=== PATIENT | female | born 1995 | race African-American/Black ===

== ENCOUNTER 2025-05-14 15:02 | Emergency (ER) | payer OTHER ==
[~2025-05-14] VITALS: Ht 157.5 cm; Wt 55.7 kg
--- NOTE | 2025-05-14 15:55 | ED.PDOC ---
HPI Comments 29 year old female with no past medical history presents to the emergency department with a chief complaint of laceration onset today (05/14/25) around 11:00, RT hand dominant. 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 Patient began experiencing pain and bleeding of 3rd digit, rates pain 8/10. Last Tetanus vaccine was in 2019. No other symptoms or modifying factors present at this time. Patient denies any fever, cough, difficulty swallowing, or shortness of breath Denies fever chills night sweats nausea vomiting diarrhea Denies chronic skin issues or family history of skin issues Chief Complaint: Laceration Time Seen by MD: 15:45 Reviewed Notes: Nurses Notes, Medications, Allergies Allergies: Coded Allergies: Penicillins (Verified Allergy, Unknown, 05/14/25) Home Meds Active Scripts Ibuprofen Micronized (Ibuprofen) 600 Mg Tab, 600 MG PO TIDWM for 10 Days, #30 TAB 0 Refills Prov:MAX FREIRE NP 05/14/25 Information Source: Patient Mode of Arrival: Ambulatory Severity: Moderate Severity of Laceration: Controlled Bleeding Complexity: Simple Timing: Hours Prehospital treatment: None Laceration Location: Digit #3 Mechanism: Work Related Last Tetanus: > 5 Years Skin Type: Linear Depth of Injury: Skin Tendon Injury: 0% Capillary Refill: < 3 seconds Tender: Moderate Past Medical History PAST MEDICAL HISTORY: Denies Surgical History: Denies all surgeries MOLDING SANDER History: No Pertinent MOLDING SANDER History Family History Family History: Reviewed,noncontributory to illness, No family hx of Cancer, No family hx of DM, No family hx of Heart minh, No family hx of HTN, No family hx ofKidney minh, No family hx of Liver minh, No family hx of Lung minh, No family hx of Stroke Social History Smoker: Non-Smoker Alcohol: Denies ETOH Use Drugs: Denies Drug Use Lives In: Home All Other Systems: Reviewed and Negative (as per HPI) Physical Exam General Appearance: Normal HEENT: Normal ENT Inspection, Pharynx Normal, TMs Normal Neck: Full Range of Motion, Non-Tender, Normal, Normal Inspection Respiratory: Chest Non-Tender, Lungs Clear, No Accessory Muscle Use, No Respiratory Distress, Normal Breath Sounds Cardiovascular: No Edema, No JVD, No Murmur, No Gallop, Normal Peripheral Pulses, Regular Rate/Rhythm Breast Exam: Deferred Gastrointestinal: No Organomegaly, Non Tender, No Pulsatile Mass, Normal Bowel Sounds, Soft Genitalia: Deferred Pelvic: Deferred Rectal: Deferred Extremities: No calf tenderness, Normal capillary refill, No pedal edema Musculoskeletal : Location: Left Extremity Location: Finger 3 (echymosis to dorsal/volar distal phalanx, full ROM, pain with flexion. neurovascular intact, cap refill < 3 seconds. 1 cm abrasion noted to roof of nailbed with no active bleeding) Apperance: Normal Neurologic: Alert, piping blocker II-XII nml as Tested, No Motor Deficits, Normal Affect, Normal Mood, No Sensory Deficits Cerebellar Function: Normal Reflexes: Normal Skin: Dry, Normal Color, Warm Lymphatic: No Adenopathy Was a procedure done? Was a procedure done?: No X-Ray, Labs, Meds, VS Vital Signs Date Time Temp Pulse Resp B/P (MAP) Pulse Ox O2 Delivery O2 Flow Rate FiO2 05/14/25 17:31 86 16 98 Room Air 05/14/25 17:31 98.6 86 18 132/75 (94) 98 98.6 05/14/25 15:15 98.4 83 16 132/78 (96) 98 98.4 Current Medications Medications (Trade) Dose Ordered Sig/Feliberto Route Start Time Stop Time Status Last Admin Diphtheria/ Tetanus/Acell Pertussis (Boostrix T-Dap) 0.5 ml ONCE ONCE IM 05/14/25 16:00 05/14/25 16:01 DC 05/14/25 16:00 Acetaminophen (Tylenol Tablet Or Capsule) 1,000 mg ONCE ONCE PO 05/14/25 16:00 05/14/25 16:01 DC 05/14/25 16:00 [place] [id number] Ph: [phone] DIAGNOSTIC IMAGING Diagnostic Imaging Report : [id number] Signed PATIENT: CHAZ PERALTA ACCT: [id number] UNIT: [id number] : 1995 LOC: ER ROOM / BED: / AGE / SEX: 29 / F ADM STATUS: REG ER SERVICE [id number] ORDERING PHYSICIAN: MAX FREIRE NP PROCEDURE(s): LHAN - L HAND 3V XRAY REASON: r/o fracture to long finger ORDER NUMBER(s): [id number], ACCESSION NUMBER(s): [id number] CLINICAL INDICATION: r/o fracture to long finger TECHNIQUE: XY L HAND 3V XRAY Comparison: None FINDINGS/IMPRESSION: : Minimally displaced fracture of the base of the distal 3rd phalanx. ATED BY: JIMBO ALEXANDRE MD DICTATED DATE/TIME: 05/14/251636 SIGNED BY: JIMBO ALEXANDRE MD SIGNED DATE/TIME: 05/14/251636 CC: X-Ray, Labs, Meds, VS Comment 29 year old female with no past medical history presents to the emergency [facility] with a chief complaint of laceration onset today (05/14/25) around 11:00, RT hand dominant. Patient arrives alert and oriented, ABC's intact, afebrile, vital signs stable, saturating well in room air Diagnostic imaging ordered by me and results interpreted by radiology : XY L hand 3 V: IMPRESSION: : Minimally displaced fracture of the base of the distal 3rd phalanx. Patient was given: Tylenol 1 g PO, Tetanus vaccine. Tolerated medications with no adverse reaction. Additional MDM Review of External, Non-ED records: External records reviewed. Discussion with independent historian (EMS, family) history obtained from the patient/parents (if applicable) at bedside Chronic conditions affecting care: None Social determinants of health affecting care: None Consideration of admission (observation or admission): I considered escalation of care to admission for this patient, however given the reassuring workup, the patient is safe for outpatient management. Time of 1ST Reevaluation: 16:15 Reevaluation 1ST: Improved Patient Education/Counseling: Diagnosis, Treatment Family Education/Counseling: No Family Present Departure 1 Departure Time of Disposition: 16:46 Impression: Primary Impression: Phalanx, distal fracture of finger Qualified Codes: S62.663A - Nondisplaced fracture of distal phalanx of left middle finger, initial encounter for closed fracture Disposition: 01 HOME / SELF CARE / HOMELESS Condition: Stable e-Prescriptions Ibuprofen Micronized (Ibuprofen) 600 Mg Tab 600 MG PO TIDWM for 10 Days, #30 TAB 0 Refills Prov: MAX FREIRE NP 05/14/25 Stability Stability form required: No Heart Score Heart Score: Heart Score Response (Comments) Value History N/A 0 EKG N/A 0 Age N/A 0 Risk Factors N/A 0 Troponin N/A 0 Total 0 I personally scribed for MAX FREIRE PROJECT PORTFOLIO ANALYST ([email or web address]) on 05/14/25 at 15:55. Electronically submitted by Pinky Price ([email or web address]). I personally scribed for MAX FREIRE PROJECT PORTFOLIO ANALYST ([email or web address]) on 05/14/25 at 15:57. Electronically submitted by Pinky Price ([email or web address]). I personally scribed for MAX FREIRE PROJECT PORTFOLIO ANALYST ([email or web address]) on 05/14/25 at 16:44. Electronically submitted by Pinky Price ([email or web address]). I personally scribed for MAX FREIRE PROJECT PORTFOLIO ANALYST ([email or web address]) on 05/14/25 at 17:40. Electronically submitted by Pinky Price ([email or web address]). MXA FREIRE NP May 14, 2025 15:55
[2025-05-14] MEDS: ACETAMINOPHEN 500 MG TAB or CAP PO ONE (16:00)
[2025-05-14] MEDS: TETANUS-DIPTH-ACEL PERTUSSIS 0.5ML SYR Tdap IM ONE (16:00)
--- NOTE | 2025-05-14 16:39 | DVH ---
CLINICAL INDICATION: r/o fracture to long finger TECHNIQUE: XY L HAND 3V XRAY Comparison: None FINDINGS/IMPRESSION: : Minimally displaced fracture of the base of the distal 3rd phalanx.
[2025-05-14] MEDS ORDERED: IBUP1TAB5 PO (16:47)
[2025-05-14 17:31] VITALS: BP 132/75; PULSE 86; RESP 16; TEMP 98.6; O2SAT 98
== END 2025-05-14 17:31 | disposition home or self-care (01) ==
LOC: ER 15:02
DX: S62.663A Nondisplaced fracture of distal phalanx of left middle finger, initial encounter for closed fracture (principal); Z88.0 Allergy status to penicillin; Z79.899 Other long term (current) drug therapy; X58.XXXA Exposure to other specified factors, initial encounter; Y93.89 Activity, other specified; Y92.89 Other specified places as the place of occurrence of the external cause; Y99.8 Other external cause status
CPT/HCPCS: 73130; 90471; 90715